=== PATIENT | male | born 1945 | race Caucasian/White ===

== ENCOUNTER 2023-10-19 11:46 | Day surgery (SDC) | payer MEDICARE, OTHER, SELFPAY ==
[2023-10-19] VITALS (27 sets, daily range): BP systolic 100–168; BP diastolic 61–90; BMI 29.6
[2023-10-19 12:42] LABS: Hematocrit 40.1 % (39.0-52.0); Mean Corp Hgb Conc. 34.9 g/dL (33.0-37.0); Mean Corpuscular Hgb 31.7 pg (27.0-31.0); Mean Corpuscular Volume 90.7 fL (80.0-94.0); Mean Platelet Volume 10.6 fL (7.4-10.4); Platelet Count 172 10^3/uL (130-400); Red Blood Cell Count 4.42 10^6/uL (4.70-6.10); Red Cell Dist. Width 12.9 % (11.5-14.5)
[2023-10-19 12:54] LABS: ALT (SGPT) 19 U/L (0-50); AST (SGOT) 29 U/L (17-59); Albumin 4.5 g/dl (3.5-5.0); Alkaline Phosphatase 66 U/L (38-126); Blood Urea Nitrogen 19 mg/dl (9-20); Calcium 9.2 mg/dl (8.4-10.2); Carbon Dioxide 28 mmol/L (22-30); Chloride 103 mmol/L (98-107); Estimated Creatinine Clearance 68 ml/min; Glucose 94 mg/dl (70-99); Potassium 4.5 mmol/L (3.5-5.1); Sodium 140 mmol/L (135-145); Total Bilirubin 1.1 mg/dl (0.2-1.3); Total Protein 8.3 g/dl (6.3-8.2); eGFR > 60.00
[2023-10-19] MEDS: NSS 268 ML IV (12:55)
[2023-10-19] MEDS: LOW STRENGTH ASPIRIN 324 MG PO (12:59)
--- NOTE | 2023-10-19 12:59 | PTCARENOTE ---
Ekg done and given to Carole HECTOR. No treatment ordered at this time. Will continue to monitor.
--- NOTE | 2023-10-19 14:54 | PTCARENOTE ---
Dr Randolph at pt bedside speaking to pt.
[2023-10-19] MEDS: NSS 1000 IV (15:03)
--- NOTE | 2023-10-19 16:48 | ITS.CL.CATH ---
[facility] - Catheterization
Cardiac Catheterization
Procedure Report:
LEFT HEART CATHETERIZATION
Date of Procedure: [10/19/2023]
Procedures performed:
1: Coronary angiography
2: Graft angiography
3: Thoracic aortogram
4: Conscious sedation.
Primary Care Physician: Unknown
Primary Pleat Patternmaker: Self
INDICATION: Abnormal nuclear stress test, progressive angina.
ACCESS: The patient was prepped and draped in usual sterile fashion. A 6 [place] sheath was placed in the right left artery using the Seldinger over the wire technique.
HEMODYNAMIC FINDINGS (mmHg):
LV(s/d,EDP): Not performed valve not crossed
Ao(s/d,m): 143/86 with a mean of 109
ANGIOGRAPHIC FINDINGS:
Single-plane Left Ventriculography in NDIAYE Projection: Valve not crossed
Coronary Angiography:
Dominance: Right dominant.
Using a JR 4 catheter, PAREDES to the LAD graft is cannulated. PAREDES to LAD graft is imageable to projections. PAREDES to the LAD graft is patent. There is no disease at the anastomotic site. There is backflow of blood in the mid LAD. Distal LAD post
anastomotic site is small and severely diseased.
We attempted to locate the SVG to the diagonal artery graft. Multiple catheters were used including AR-1 AL-1 and 3 DRC. We were not able to visualize the SVG to the diagonal graft. A pigtail catheter was placed just above the aortic valve into a
power injection was performed. An aortogram was done. No graft to the diagonal vessel was visualized, and is most likely occluded.
Left Main: Using a JL 3.5 Demeter diagnostic catheter, left main coronary artery was cannulated. The left system was imaged in both projections.
Left main coronary artery is patent. Mildly calcified.
There is 90% calcified proximal LAD stenosis. There is also 95% mid LAD stenosis with competitive flow seen.
Right after bifurcation with the diagonal branch, the LAD is 100% chronically totally occluded.
The diagonal branch has about a 90% ostial stenosis. Moderately calcified.
There is about a 50% disease at the bifurcation of Trula circumflex artery and large OM1 branch. 50% stenosis in the quileute left circumflex artery. OM1 is a large vessel moderately tortuous and is free of significant disease.
Right coronary artery has an abnormal downward takeoff. Mild luminal irregularities are present. Previously placed right coronary artery stent is widely patent.
Other angiography:
1: [Thoracic aortography as described above. ]
Fluoroscopy Time (min): [8.4 mins ]
Radiation Dose (mGy): [266.62]
DAP (Gy.cm2): [18.4655 ]
Closure device: None. A TR band was applied for hemostasis at the left wrist.
Complications: None.
ASSESSMENT:
1: [Patent PAREDES to LAD graft with brisk flow. Occluded SVG to the diagonal graft.]
2: Patent, previously placed, right coronary artery stent.
3: Moderate quileute coronary artery disease.
CONCLUSIONS and RECOMMENDATIONS:
1: No intervention is possible to the occluded SVG to the diagonal graft. Continue maximal medical therapy. Add Plavix 75 mg daily to the patient's medical regimen.
2: Increase Imdur to 60 mg daily.
3: Possibly rechallenge with Ranexa in the future.
I was present with the patient for the duration of the moderate sedation and supervised staff who monitored the patient for the entire procedure. Details of sedation are entered by the nurse administering the sedation and details of the patient's
monitoring status are entered by a sign monitor role staff member into the [facility] laboratory electronic record system. Please see the nursing flow sheets for documentation of the name of the independent trained observer, and intra-service start and
end times.
I administered moderate sedation throughout this [55] minute procedure. An independent trained observer administered medications at my direction, and monitored, along with the monitor role staff member, the patient's level of consciousness and
physiological status throughout
--- NOTE | 2023-10-19 17:20 | PTCARENOTE ---
Dr Randolph at pt bedside speaking to pt and pt's .
--- NOTE | 2023-10-19 18:25 | PTCARENOTE ---
1805 While standing pt up to ambulate to bathroom and change for discharge, pt leaned slightly on left hand. Small hematoma immediately noted which quickly turned into bleeding. Manual pressure applied x 10 minutes. clinical research monitor applied. While
holding manual pressure, pt's heart rate dropped to 30's. Blood pressure replaced due to cuff removed for discharge. Lowest BP recordered was 100/61. Pt's at pt bedside. Hemostasis obtained at 1815. Pt states he is feeling better. Observed left
radial site for several minutes before applying dry, sterile 4x4 and tegaderm. No bleeding or hematoma noted. Dr Randolph made aware. Orders received by Dr Randolph to apply left radial band with 12ml air for 30 minutes and give NSS bolus of 500 ml IV
now. Will follow above orders and continue to monitor.
--- NOTE | 2023-10-19 19:05 | PTCARENOTE ---
Left radial band removed. No bleeding or hematoma noted. Dry, sterile 4x4 and tegaderm applied. Will continue to monitor.
--- NOTE | 2023-10-19 19:32 | PTCARENOTE ---
Pt ambulated around recovery room x 2 with RN without difficulty or incident. Left radial band remains stable. No bleeding or hematoma noted. VSS. Dr Randolph made aware of pt's left radial site status and pt feeling well. Dr Randolph states ok for
discharge. Will discharge pt as ordered.
== END 2023-10-19 19:40 | disposition home or self-care (01) ==
LOC: CATH 11:46
PROVIDERS: ATTENDING PHYSICIAN Internal Medicine Cardiovascular Disease; FAMILY PHYSICIAN Internal Medicine
DX: I25.110 Atherosclerotic heart disease of native coronary artery with unstable angina pectoris (principal); Z95.5 Presence of coronary angioplasty implant and graft; I25.82 Chronic total occlusion of coronary artery; Z79.02 Long term (current) use of antithrombotics/antiplatelets; Z79.899 Other long term (current) drug therapy; I25.710 Atherosclerosis of autologous vein coronary artery bypass graft(s) with unstable angina pectoris
CPT/HCPCS: 80053; 85027; 93005; 93455; 93567; C1894; Q9967